=== PATIENT | female | born 1990 | race Hispanic/Latino ===

== ENCOUNTER 2023-01-08 12:46 | Emergency (ER) | payer OTHER ==
[~2023-01-08] VITALS: Ht 165.1 cm; Wt 101.2 kg
--- OUTSIDE RECORDS SUMMARY | 2023-01-08 12:48 | XMS ---
PreManage Notification: DONI GIBSON [employer] Supervisor Events No recent Security Events currently on file CRITERIA MET - [facility] - 2 Visits in 30 Days - [facility] CARE PROVIDERS KENDALL, MIKAELA SPANGLER Clinic/Center: [facility] MEDICAL PHONE: [phone] ENRIQUE ANTHONY Surgery Current A PHONE: [phone] Hero has no Care Guidelines for this patient. EJana VISIT COUNT (12 MO.) Mikaela Spangler Purnima [address] [place] [address] TOTAL 7 NOTE: Visits indicate total known visits. ED/UCC VISIT TRACKING (12 MO.) 01/08/2023 12:47 [facility] TYPE: Emergency COMPLAINT: - ABD PAIN 01/07/2023 06:02 [facility] TYPE: Emergency DIAGNOSES: - Vomiting, unspecified - Abdominal Pain 01/04/2023 20:16 [facility] TYPE: Emergency DIAGNOSES: - Diarrhea, unspecified - Vomiting, unspecified - Emesis - Unspecified abdominal pain - Abdominal Pain 09/21/2022 18:49 [facility] TYPE: Emergency DIAGNOSES: - Nausea with vomiting, unspecified - Cannabis use, unspecified, uncomplicated - Dehydration - Emesis 05/09/2022 08:54 [facility] TYPE: Emergency DIAGNOSES: - Unspecified abdominal pain - Abdominal Pain - follow up medical/ abnormal lab - follow up medical/ abdominal pain 05/07/2022 07:51 [facility] TYPE: Emergency DIAGNOSES: - Elevation of levels of liver transaminase levels - Nausea - abdominal pain - Upper abdominal pain, unspecified 03/13/2022 12:13 [facility] TYPE: Emergency DIAGNOSES: - Rectal Pain - Possible Hemorrhoid - Other hemorrhoids INPATIENT VISIT TRACKING (12 MO.) No inpatient visits to display in this time frame [email or web address]
[2023-01-08] MEDS ORDERED: OMEPRAZOLE20 MG PO (16:25)
[2023-01-08] MEDS ORDERED: LOMOTIL TABLET1 EACH PO (16:25)
[2023-01-08] MEDS ORDERED: PROMETHAZINE HC25 M1 PO (16:25)
== END 2023-01-08 16:38 | disposition home or self-care (01) ==
LOC: ED 12:46
DX: K52.9 Noninfective gastroenteritis and colitis, unspecified (principal); K21.9 Gastro-esophageal reflux disease without esophagitis; Z88.6 Allergy status to analgesic agent
CPT/HCPCS: 36415; 80053; 83690; 84703; 85025; 96361; 96374; 96375; 99284-25; C9113; J1200; J2060; J2405; J2550; J7030